=== PATIENT | female | born 2000 | race Caucasian/White ===

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

== ENCOUNTER → 2018-12-11 | Outpatient (CLI) | payer OTHER ==
--- NOTE | 2018-12-11 15:59 | US ---
EXAM DESCRIPTION: Breast,Bilateral: Ultrasound. CLINICAL HISTORY: 18 yearsFemaleBREAST LUMP. Bilaterally, multiple. Started retroareolar now more peripheral. Occasional pain. No personal history of breast cancer. Remote family history of breast and ovarian cancer. No childbirth. Premenopausal. Taking control. COMPARISON: None. TECHNIQUE: Transcutaneous scanning of the bilateral breast utilizing freeman-scale and Doppler modes. Scanning performed by the dye stand loader and Dr. Marin. FINDINGS: Scanning right breast 3:00 position 3 to 4 cm from the nipple. Mostly fibroglandular and fibrocystic tissues with minimal fatty tissues. Also scanning right breast retroareolar. Circumscribed hypoechoic lymph node measuring 6 x 5 mm 4 cm from the nipple. Wider than tall orientation, nonvascular, mixed posterior signal. No dominant solid mass or distinct cyst. No large calcification. Scanning left breast retroareolar. Mostly fibroglandular and fibrocystic tissues with minimal fatty tissue. No dominant solid mass or distinct cyst. No large calcification. IMPRESSION: BI-RADS CATEGORY: 1 - NEGATIVE. No suspicious or significant imaging findings. FOLLOW UP: The region of interest should be followed on clinical grounds and is noted to change in size or character, a directed follow-up ultrasound examination may be performed. Written communication explaining the findings and follow-up, will be mailed to the patient and referring health care provider. The findings and follow-up for this examination were reviewed in person with the patient following the examination. According to the [employer], yearly mammograms are recommended starting at age 40 and continuing as long as a woman is in good health. Any breast change noted on a breast self-exam should be reported promptly to the patient's healthcare provider. Breast MRI is recommended for women with an approximately 20-25% or greater lifetime risk of breast cancer, including women with a strong family history of breast or ovarian cancer and women who have been treated for Hodgkin's disease. Electronically signed by: Dylan Marin MD 12/11/2018 3:57 PM CDT
== END ==
LOC: MAMMO 11:54
PROVIDERS: ATTEND Nurse Practitioner Family
DX: N63.10 Unspecified lump in the right breast, unspecified quadrant (principal)